=== PATIENT | female | born 1945 | race Caucasian/White ===

== ENCOUNTER 2016-07-06 22:42 | Inpatient (IN) | payer OTHER ==
--- NOTE | ~2016-07-06 | HP ---
History And Physical [place] [id number] [facility] [place]. [address] NAME: AYAN HERRERA : 44 STATUS : ADM IN [facility]#: [id number] AGE: 70 ADM/REG DATE : 07/07/16 MR#: [id number] REPORT SERV DATE: 07/07/16 DICTATED BY: HARIKA JC DATE: 07/07/16 REPORT STATUS : Draft TRANSCRIBED BY: MODJenaro DATE: 07/07/16 DATE OF ADMISSION: 07/07/2016 CHIEF COMPLAINT: Fever. HISTORY OF PRESENT ILLNESS: The patient is a 70-year-old female with a diagnosis of breast cancer, on current treatment with Dr. Ramos, additionally under the care of Dr. 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 Fever began approximately four days ago and today has been consistently 100.7, although the patient did take one-time dose of Tylenol. Has been down to 99 currently, but the patient does have generalized feeling of significant weakness. The patient did have diarrhea episode x2 days, in which she took Imodium, which has since resolved, but still having cramping-type symptoms. Symptoms of weakness have been progressive, constant, moderate to severe with cramping abdominal pain. No radiating symptoms. Associated with mild nausea, but no vomiting. Positive for fever, diarrhea, weakness. No shortness of breath, dizziness, or swelling. There are no worsening symptoms or relieving symptoms. Weakness is still currently present with fevers, slightly improved. REVIEW OF SYSTEMS: GENERAL: Noted for weakness, fever, dizziness occasionally. EYES: No visual changes or pain. ENT: No sore throat or congestion. Does have right ear pain. NEURO: No headaches or confusion. SKIN: No rashes or bruising. RESPIRATORY: No shortness of breath or cough. CV: No chest pain or palpitations. GI: Mild nausea. Positive diarrhea. Abdominal cramping. : No dysuria or hematuria. MUSCULOSKELETAL: No myalgias or arthralgias above baseline. ENDO: Noted for fatigue, but no change in blood sugars. HEME: No bleeding or bruising. IMMUNOLOGIC: No rhinorrhea. PSYCH: No anxiety or confusion. PAST MEDICAL HISTORY: Pnd-nqippvh-kopftjxwq diabetes, breast cancer, hypertension, chronic MRSA infection on chronic doxycycline. SURGICAL HISTORY: Right knee surgery, left lumpectomy. SOCIAL HISTORY: No smoking, alcohol, or illicits. Unfortunately has had loss of this year in March shortly after her diagnosis of cancer and has also been dealing with a son, who is currently also admitted with diabetic foot requiring toe and foot amputations and also underwent heart attack. FAMILY HISTORY: Noted for heart disease and diabetes. History And Physical [address] [address] NAME: AYAN HERRERA : 44 STATUS : ADM IN [facility]#: [id number] AGE: 70 ADM/REG DATE : 07/07/16 MR#: [id number] REPORT SERV DATE: 07/07/16 DICTATED BY: HARIKA JC DATE: 07/07/16 REPORT STATUS : Draft TRANSCRIBED BY: CHASITY DATE: 07/07/16 ALLERGIES: CODEINE AND ADHESIVE TAPE. HOME MEDICATIONS: Tylenol, Norvasc, aspirin, doxycycline, Hyzaar, melatonin, metformin, Prilosec, and Zocor. PHYSICAL EXAMINATION: VITAL SIGNS: The patient's blood pressure 105/61, temperature 99.4, pulse 99, respirations 18, O2 saturation 100%. GENERAL: No acute distress, but fairly weak. EYES: No scleral icterus. ENT: Cerumen impaction in right ear. Left ear clear. No bulging tympanic membranes. Nares patent. Tongue midline. Dry mucous membranes. RESPIRATORY: Clear to auscultation. No wheezes. CV: Mildly tachycardic. No rubs. GI: Soft, nontender, nondistended. Bowel sounds positive, but does have random cramping episodes. : Deferred. MUSCULOSKELETAL: Moves all extremities. Does have brace on right knee. SKIN: Warm and dry. No mottling. LYMPH: No pedal lymphadenopathy. HEME: No bleeding or bruising. NEURO: Alert and oriented. Moves all extremities x4. PSYCH: Appropriate mood and affect. EKG: Normal sinus rhythm, rate of 93, QTc 450. No acute dynamic ST changes. Lactate 2.7. Urinalysis negative. CBC; WBC count 0.8, H and H 7.4 and 21.7, MCV of 87.1, platelets 68. Neutrophil 0.14. CMP; procalcitonin 0.53, potassium 3.3, sodium 139, BUN and creatinine 24 and 1.23, total protein 4.4, albumin 1.6, AST and ALT 71 and 79, lipase 56. ASSESSMENT AND PLAN: 1. Neutropenic fever. 2. Severe sepsis present on arrival. 3. Pancytopenia. 4. Kdp-fupjqbu-vfwobcrln diabetes. 5. Chronic methicillin-resistant Staphylococcus aureus, on chronic doxycycline. 6. Hypokalemia. 7. Breast cancer. 8. Elevated LFTs. PLAN: 1. For neutropenic fever, cefepime given in the emergency room. Continue chronic doxycycline. We will ask Dr. Brady to evaluate, as the patient sees Dr. Brady chronically due to chronic MRSA infection of right knee. The patient did have two episodes of diarrhea, but doubt acute C diff, as these symptoms appear to have resolved. We will also keep on neutropenic precautions. 2. Sepsis, severe. Elevated lactate with neutropenia, tachycardia, and fever. History of History And Physical [address] [address] NAME: AYAN HERRERA : 44 STATUS : ADM IN PAT#: [id number] AGE: 70 ADM/REG DATE : 07/07/16 MR#: [id number] REPORT SERV DATE: 07/07/16 DICTATED BY: HARIKA JC DATE: 07/07/16 REPORT STATUS : Draft TRANSCRIBED BY: CHASITY DATE: 07/07/16 MRSA, on chronic doxy. Cefepime empirically and culture monitor. 3. Pancytopenia. Recent chemotherapy approximately one week ago, on treatment for breast cancer. 4. Ajv-xzpbbgn-whaamdswd diabetes. Sliding scale insulin. Hold metformin. 5. Chronic MRSA. Continue doxycycline until evaluated by Dr. Brady. 6. Hypokalemia. Replace. The patient did have recent diarrhea episode, which could be additional causal agent. 7. Breast cancer history per Dr. Ramos. 8. Elevated LFTs. Monitor. Hold statin. We will need decreased dose to either statin or change from amlodipine. We will hold both medications at this time. Repeat LFTs with next set of labs. DDN/MODL Harika Jc MD / [id number] CC: MD Guerda Andujar D.O.
--- NOTE | ~2016-07-06 | CN ---
Consultation Report [facility] [address] [place]. [address] NAME: AYAN HERRERA : 43 STATUS : ADM IN PAT#: [id number] AGE: 70 ADM/REG DATE : 07/07/16 MR#: [id number] REPORT SERV DATE: 07/08/16 DICTATED BY: AYLIN BRADY DATE: 07/07/16 REPORT STATUS : Draft TRANSCRIBED BY: MODL DATE: 07/07/16 INFECTIOUS DISEASE CONSULTATION DATE OF CONSULTATION: 07/07/2016 REASON FOR CONSULTATION: Neutropenic fever. HISTORY OF PRESENT ILLNESS: This is a 70-year-old female, known to me from her history of MRSE infection of her right total knee arthroplasty, for which she has been on suppressive doxycycline therapy for five years. She was diagnosed with a breast cancer of her left breast, an invasive ductal cell carcinoma, in February and on 03/16, underwent a left breast lumpectomy and sentinel lymph node biopsy. Lymph nodes were positive. The patient was seen by Dr. Ramos and begun on chemotherapy, finishing her last doses eight days ago. She also got a dose of Neulasta that day. A few days after that, she started getting some nausea, a little bit of episodic vomiting and then developed some loose stools and abdominal cramping, along with low-grade fevers going as high as 100.7. These symptoms brought her to the emergency department last night, where she was found to be mildly tachycardic with a pulse of 99 and had a temperature of 99.4 and was found to have a white blood cell count of 800 with 20% neutrophils. The patient had blood cultures obtained and was started on cefepime. A stool for C diff and other studies was ordered, but has not yet been collected. The patient states she has had maybe five very loose watery stools over the past 24 hours and continues to have some cramping abdominal pain and nausea. Her white blood cell count is improved this morning as outlined below. She denies any problems with her right knee. PAST MEDICAL HISTORY: In addition to the above is notable for diabetes and hypertension. She also has a history of gastroesophageal reflux, hyperlipidemia and has had a cholecystectomy. ALLERGIES: SHE IS INTOLERANT OF CODEINE. OUTPATIENT MEDICATIONS: Include doxycycline, Prilosec, Zocor, Hyzaar, melatonin, metformin, aspirin, Norvasc, and p.r.n. Tylenol. SOCIAL HISTORY: The patient lost her of 55 years in March. One of her two sons has been very ill and remains in the hospital now also. She is nonsmoker and nondrinker. FAMILY HISTORY: Notable for heart disease and diabetes. REVIEW OF SYSTEMS: No chest pain, shortness of breath, or genitourinary symptoms. No skin issues. Otherwise, as noted above. PHYSICAL EXAMINATION: VITAL SIGNS: Maximum temperature since admission 99.4, blood pressure 127/53 and was as low as 105/61, pulse 82 at present, respiratory rate 14. She weighs 83 kg. Consultation Report [address] [place]. [address] NAME: AYAN HERRERA : 43 STATUS : ADM IN [facility]#: [id number] AGE: 70 ADM/REG DATE : 07/07/16 MR#: [id number] REPORT SERV DATE: 07/08/16 DICTATED BY: AYLIN BRADY DATE: 07/07/16 REPORT STATUS : Draft TRANSCRIBED BY: CHASITY DATE: 07/07/16 GENERAL: She appears ill, but not toxic. She is alert and oriented. HEAD AND NECK: Show a clear oral cavity without thrush or ulcers. Neck is supple, no adenopathy. LUNGS: Clear to auscultation. CARDIAC: Regular rate and rhythm. Normal S1 and S2 without murmur, gallop, or rub. ABDOMEN: Notable for hyperactive bowel sounds. No significant distention, but soft and mild discomfort to palpation, nonlocalized. EXTREMITIES: Right total knee arthroplasty has chronic soft tissue edema without warmth, erythema, or tenderness. The patient has a peripheral IV in her arm without phlebitis. SKIN: Without rash. LABORATORY STUDIES: White blood cell count today 1.3 with 46% neutrophils, 8% bands, 38% lymphs; hemoglobin 7.3; platelets 74,000. Creatinine 1.08. Lactate level on admission was 2.7, it is 1.6 this morning. ALT 79, AST 71, alkaline phosphatase and bilirubin normal. Procalcitonin 0.53. Urinalysis negative. Blood cultures negative to date. Chest x-ray x2 negative. IMPRESSION: Neutropenic fever in a patient who just finished chemotherapy for breast cancer a week ago. No obvious source of the fever, but she does have prominent GI symptoms over the past week including diarrhea and of course, we need to rule out C diff colitis along with other bacterial colitis. The patient also has a history of right total knee arthroplasty infection with MRSE, well controlled for many years on suppressive doxycycline therapy. Fortunately, the patient's white blood cell count is improving with absolute neutrophil count today of 715 status post a dose of Neulasta last week. PLAN: 1. For today, we will continue the IV cefepime. 2. Continue suppressive doxycycline. 3. We will check the stool for C diff and culture. 4. Check repeat white blood cell count in the morning. RADHA/MODJenaro Aylin Brady M.D. / [id number] CC: MD Guerda Grace D.O. Bertrand Marquess Anz III, M.D.
--- NOTE | ~2016-07-06 | DS ---
Discharge Summary [facility] [address] [place]. [address] NAME: AYAN HERRERA : 44 STATUS : DIS IN PAT#: [id number] AGE: 70 ADM/REG DATE : 07/07/16 MR#: [id number] REPORT SERV DATE: 07/09/16 DICTATED BY: PAPA HAYNES DATE: 07/09/16 REPORT STATUS : Draft TRANSCRIBED BY: MODL DATE: 07/09/16 ADMISSION DATE: 07/07/2016 DISCHARGE DATE: 07/09/2016 DISCHARGE DIAGNOSES: 1. Neutropenic fever, resolved. 2. History of methicillin-resistant Staphylococcus aureus, right knee. 3. Sepsis, resolved. 4. Pancytopenia, chemo induced. 5. Breast cancer. 6. Diabetes mellitus type 2, stable. 7. Acute kidney injury, improving. IMAGIN. Chest x-ray, 06/16/2016, impression: Lungs clear. Heart size normal. 2. Chest x-ray, 06/17/2016, impression: No new airspace disease. LABORATORY DATA: WBC 12.7, hemoglobin 8.4, hematocrit 25.5, and platelet count 117. Procalcitonin is 0.53. Sodium is 141, potassium 4.1, chloride is 109. BUN is 15. Creatinine is 1.17. Glucose is 95. Calcium is 7.6 and magnesium is 1.7. CONSULTATIONS: Infectious Disease, Dr. Brady. COURSE OF HOSPITAL STAY: Please refer to history and physical dictated by Dr. Alphonso Blood, on 07/07/2016, as well as consult note by Dr. Brady. This patient is a 70-year-old female, who presented in [facility] Emergency Room with complaints of fever. She does present with a history of breast cancer, last chemotherapy one week prior to this admission. The patient is under the care of Dr. Ramos, in [facility]. 1. Neutropenic fever. The patient was evaluated in the emergency room, initially started on cefepime, noting that patient was on chronic doxycycline due to history of MRSA to right knee. The patient is followed outpatient by Dr. Brady. Dr. Brady was consulted to follow the patient. The patient did state she had episodes of diarrhea. She was C diff negative. Cefepime was held 24 hours prior to discharge. Patient remained afebrile. Lab work was observed. Patient has remained stable. She will be discharged home. Continue her doxycycline. 2. History of MRSA, right knee. As stated above, the patient has been followed by Dr. Brady, outpatient due to chronic MRSA of right knee. Patient was continued on doxycycline during her stay and was evaluated by Dr. Brady. She will be discharged home to continue her medications. 3. Sepsis. The patient was noted with elevated lactate upon admission as well as neutropenic and tachycardic with fever. With history of MRSA, precautions were made again. Infectious Disease was asked to monitor. Within 24 hours of admission, the patient was afebrile, and white count again was monitored. Patient will be discharged to continue her doxycycline. Discharge Summary [address] [address] NAME: AYAN HERRERA : 44 STATUS : DIS IN PAT#: [id number] AGE: 70 ADM/REG DATE : 07/07/16 MR#: [id number] REPORT SERV DATE: 07/09/16 DICTATED BY: PAPA HAYNES DATE: 07/09/16 REPORT STATUS : Draft TRANSCRIBED BY: CHASITY DATE: 07/09/16 4. Pancytopenia. This was chemo induced. The patient was monitored during her stay. The patient will follow up with Oncology outpatient. 5. Breast cancer. The patient is followed by Dr. Ramos. The patient has a followup appointment on 07/20/2016. The patient will follow up then. If the need arises, the patient will call . 6. Diabetes mellitus type 2. The patient's blood sugar was monitored. She was placed on a sliding scale. She will continue home medications upon discharge. 7. Acute kidney injury. It was noted the patient's BUN and creatinine were elevated upon admission. This has been monitored. It is improving. She will continue to follow up outpatient with Dr. Ramos. DISCHARGE MEDICATIONS: 1. Aspirin 81 mg one p.o. twice daily. 2. Doxycycline 100 mg p.o. twice daily. 3. Prilosec 40 mg one p.o. daily. 4. Norvasc 10 mg one p.o. daily. 5. Zocor 80 mg p.o. every morning. 6. Losartan/HCTZ 100/12.5 one tab every morning. 7. Glucophage 500 mg one p.o. twice daily. 8. Melatonin 3 mg one p.o. at bedtime. 9. Tylenol 500-1000 mg p.o. p.r.n. for pain. This discharge took less than 30 minutes. JHON/CHASITY Papa Haynes NP / [id number] CC: MD Guerda Grace D.O.
[~2016-07-06 22:42] MED LIST: ASA5GR PO; AVAP150 PO; B12250T PO; BACDS PO; CALTRA600D PO; DORYX50 MG PO; FISH-EPA1000 MG PO; GLUCOPHAGE1000 MG PO; HARD NAILS PO; HYDROCHLOROT25 MG PO; HYZAAR1 TAB PO; MULTIPLE VIT PO; NAP500 PO; NEXIUM40 PO; NORCO1 TA1 PO; NORV10 PO; PR25 PO; PRILOSEC40 MG PO; ULTRAM50 PO; ZOCOR40 PO; ZOFRAN4 PO; [UNRECOGNIZED DRUG - OTHER]
[2016-07-07 00:18] LABS: BASOPHILS 0 %; EOSINOPHILS 1.3 %; EOSINOPHILS ABSOLUTE 0.01 10/3/uL (0.0-0.53); LYMPHOCYTES 42.9 %; LYMPHOCYTES ABSOLUTE 0.33 10/3/uL (0.67-4.30); MEAN CORPUSCULAR HEMOGLOB 29.7 pg (26.0-34.0); MEAN CORPUSCULAR VOLUME 87.1 fL (80-100); MEAN PLATELET VOLUME 11.1 fL (9.2-13.0); MONOCYTES 37.7 %; MONOCYTES ABSOLUTE 0.29 10/3/uL (0.21-1.20); NEUTROPHILS 18.1 %; NEUTROPHILS ABSOLUTE 0.14 10/3/uL (2.02-8.40)
[2016-07-07 00:19] LABS: ER CBC TAT 0 Hrs 07 Mins; HEMATOCRIT 21.7 % (36.0-48.0); HEMOGLOBIN 7.4 g/dL (12.0-16.0); MANUAL DIFF NO %; MEAN CORPUS HGB CONC 34.1 g/dL (32.0-36.0); PLATELET COUNT 68 10/3/uL (150-400); RBC DISTRIBUTION WIDTH 16.9 % (12.0-16.0); RED CELL COUNT 2.49 10/6/uL (4.0-5.6); WHITE BLOOD CELLS 0.8 10/3/uL (4.5-10.5)
[2016-07-07 00:37] LABS: LACTATE 2.7 MMOL/L (0.3-2.4)
[2016-07-07 00:39] LABS: CALCIUM, SERUM 7.9 MG/DL (8.5-10.4); CHLORIDE, SERUM 102 MMOL/L (96-112); CO2 (CARBON DIOXIDE) 27 MMOL/L (24-34); CREATININE 1.23 MG/DL (0.55-1.02); GFR AFRICAN AMERICAN 51 ML/MIN (>=60); GFR NON AFRICAN AMERICAN 44 ML/MIN (>=60); GLUCOSE, SERUM 126 MG/DL (60-99); SGPT(ALT) 79 U/L (5-65); SODIUM, SERUM 139 MMOL/L (135-148); TOTAL BILIRUBIN 0.8 MG/DL (0-1.2)
[2016-07-07 00:40] LABS: A/G RATIO 0.6 (0.7-1.9); ALBUMIN 1.6 G/DL (3.5-5.0); ALKALINE PHOSPHATASE 76 U/L (45-117); BUN (BLOOD UREA NITROGEN) 24 MG/DL (6-23); GLOBULIN 2.8 G/DL (2.5-4.1); POTASSIUM, SERUM 3.3 MMOL/L (3.5-5.3); SGOT(AST) 71 U/L (5-40); TOTAL PROTEIN 4.4 G/DL (6.0-8.5)
[2016-07-07 00:44] LABS: ASCORBIC ACID (UR NOT ORDER) NEG (NEG); BILIRUBIN, URINE NEGATIVE (NEG); ER URINALYSIS TAT 0 Hrs 00 Mins; KETONE, URINE NEGATIVE (NEG); LEUKOCYTE ESTERASE(NOT OR NEG (NEG); NITRITE (URINE) NEG (NEG); WBC (NOT ORDERED) (RFLEX) 2 (0-5)
[2016-07-07 00:51] LABS: ANISOCYTOSIS 1+ (5-10/OIF) (0-5/OIF); ER DIFF TAT 0 Hrs 39 Mins; LYMPHOCYTES 50 %; MONOCYTES 30 %; MONOCYTES ABSOLUTE (CALC) 0.24 10/3/uL (0.21-1.20); NEUTROPHILS ABSOLUTE (CALC) 0.16 10/3/uL (2.02-8.40); PLATELET ESTIMATE DEC (ADEQUATE); RBC MORPHOLOGY ABN (NORMAL); SEGMENTED NEUTROPHIL (0) 20 %; TOTAL NUCLEATED CELLS 10
[2016-07-07 01:29] LABS: PROCALCITONIN 0.53 ng/mL (<0.5)
[2016-07-07] MEDS ORDERED: NORV10 PO (01:36)
[2016-07-07] MEDS ORDERED: PRILOSEC40 MG PO (01:37)
[2016-07-07] MEDS ORDERED: DORYX100 MG PO (01:37)
[2016-07-07] MEDS ORDERED: HYZAAR1 TAB PO (01:37)
[2016-07-07] MEDS ORDERED: ZOCOR80 MG PO (01:37)
[2016-07-07] MEDS ORDERED: ACET500CAP PO (01:38)
[2016-07-07] MEDS ORDERED: GLUCPH PO (01:38)
[2016-07-07] MEDS ORDERED: MELA3 PO (01:38)
[2016-07-07] MEDS ORDERED: ASAB PO (01:38)
[2016-07-07 08:13] LABS: HEMATOCRIT 21.9 % (36.0-48.0); HEMOGLOBIN 7.3 g/dL (12.0-16.0); MEAN CORPUS HGB CONC 33.3 g/dL (32.0-36.0); MEAN CORPUSCULAR HEMOGLOB 29.1 pg (26.0-34.0); MEAN CORPUSCULAR VOLUME 87.3 fL (80-100); PLATELET COUNT 74 10/3/uL (150-400); RED CELL COUNT 2.51 10/6/uL (4.0-5.6)
[2016-07-07 08:14] LABS: MANUAL DIFF YES %; WHITE BLOOD CELLS 1.3 10/3/uL (4.5-10.5)
[2016-07-07 08:25] LABS: BUN (BLOOD UREA NITROGEN) 21 MG/DL (6-23); CALCIUM, SERUM 7.7 MG/DL (8.5-10.4); CHLORIDE, SERUM 105 MMOL/L (96-112); CO2 (CARBON DIOXIDE) 26 MMOL/L (24-34); CREATININE 1.08 MG/DL (0.55-1.02); GFR AFRICAN AMERICAN 60 ML/MIN (>=60); GFR NON AFRICAN AMERICAN 52 ML/MIN (>=60); POTASSIUM, SERUM 3.5 MMOL/L (3.5-5.3); SODIUM, SERUM 140 MMOL/L (135-148)
[2016-07-07 08:26] LABS: GLUCOSE, SERUM 96 MG/DL (60-99)
[2016-07-07 08:46] LABS: ANISOCYTOSIS 1+ (5-10/OIF) (0-5/OIF); BAND NEUTROPHILS 8 %; LYMPHOCYTES 30 %; LYMPHOCYTES ABSOLUTE (CALC) 0.39 10/3/uL (0.67-4.30); MICROCYTES 1+ (5-10/OIF) (0-5/OIF); MONOCYTES 16 %; MONOCYTES ABSOLUTE (CALC) 0.21 10/3/uL (0.21-1.20); PLATELET ESTIMATE DEC (ADEQUATE); SEGMENTED NEUTROPHIL (0) 46 %; TOTAL NUCLEATED CELLS 100
[2016-07-07 08:47] LABS: VACUOLATED NEUTROPHILES 1+
[2016-07-07 13:13] LABS: MEAN CORPUS HGB CONC 34.3 g/dL (32.0-36.0); MEAN CORPUSCULAR VOLUME 87.4 fL (80-100); MEAN PLATELET VOLUME 10.9 fL (9.2-13.0); PLATELET COUNT 75 10/3/uL (150-400); RBC DISTRIBUTION WIDTH 16.9 % (12.0-16.0)
[2016-07-07 13:14] LABS: HEMATOCRIT 20.1 % (36.0-48.0); HEMOGLOBIN 6.9 g/dL (12.0-16.0); MANUAL DIFF YES %; WHITE BLOOD CELLS 1.8 10/3/uL (4.5-10.5)
[2016-07-07 13:28] LABS: A/G RATIO 0.6 (0.7-1.9); ALBUMIN 1.5 G/DL (3.5-5.0); ALKALINE PHOSPHATASE 71 U/L (45-117); BUN (BLOOD UREA NITROGEN) 20 MG/DL (6-23); CALCIUM, SERUM 7.6 MG/DL (8.5-10.4); CHLORIDE, SERUM 107 MMOL/L (96-112); CO2 (CARBON DIOXIDE) 24 MMOL/L (24-34); CREATININE 1.02 MG/DL (0.55-1.02); GFR AFRICAN AMERICAN 64 ML/MIN (>=60); GFR NON AFRICAN AMERICAN 55 ML/MIN (>=60); GLOBULIN 2.6 G/DL (2.5-4.1); GLUCOSE, SERUM 94 MG/DL (60-99); POTASSIUM, SERUM 3.8 MMOL/L (3.5-5.3); SGOT(AST) 72 U/L (5-40); SGPT(ALT) 90 U/L (5-65); SODIUM, SERUM 142 MMOL/L (135-148); TOTAL BILIRUBIN 0.6 MG/DL (0-1.2); TOTAL PROTEIN 4.1 G/DL (6.0-8.5)
[2016-07-07 13:45] LABS: BAND NEUTROPHILS 32 %; EOSINOPHILS 4 %; EOSINOPHILS ABSOLUTE (CALC) 0.07 10/3/uL (0.0-0.53); IMMATURE GRANS ABSOLUTE (CALC) 0.07 10/3/uL (0.0-0.11); LYMPHOCYTES 32 %; LYMPHOCYTES ABSOLUTE (CALC) 0.58 10/3/uL (0.67-4.30); METAMYELOCYTES 4 %; MONOCYTES 16 %; MONOCYTES ABSOLUTE (CALC) 0.29 10/3/uL (0.21-1.20); NEUTROPHILS ABSOLUTE (CALC) 0.79 10/3/uL (2.02-8.40); SEGMENTED NEUTROPHIL (0) 12 %; TOTAL NUCLEATED CELLS 50
[2016-07-07 13:46] LABS: PLATELET ESTIMATE DEC (ADEQUATE); POLYCHROMASIA 1+ (2-5/OIF) (0-1/OIF); TOXIC GRANULATION 1+
[2016-07-08 05:37] LABS: BUN (BLOOD UREA NITROGEN) 19 MG/DL (6-23); CALCIUM, SERUM 7.4 MG/DL (8.5-10.4); CHLORIDE, SERUM 106 MMOL/L (96-112); CO2 (CARBON DIOXIDE) 25 MMOL/L (24-34); CREATININE 1.26 MG/DL (0.55-1.02); GFR AFRICAN AMERICAN 50 ML/MIN (>=60); GFR NON AFRICAN AMERICAN 43 ML/MIN (>=60); GLUCOSE, SERUM 79 MG/DL (60-99); POTASSIUM, SERUM 3.6 MMOL/L (3.5-5.3); SODIUM, SERUM 138 MMOL/L (135-148)
[2016-07-08 05:49] LABS: HEMOGLOBIN 7.8 g/dL (12.0-16.0); MEAN CORPUS HGB CONC 33.5 g/dL (32.0-36.0); MEAN CORPUSCULAR HEMOGLOB 29.8 pg (26.0-34.0); MEAN CORPUSCULAR VOLUME 88.9 fL (80-100); MEAN PLATELET VOLUME 10.9 fL (9.2-13.0); RBC DISTRIBUTION WIDTH 16.9 % (12.0-16.0); RED CELL COUNT 2.62 10/6/uL (4.0-5.6)
[2016-07-08 05:52] LABS: HEMATOCRIT 23.3 % (36.0-48.0); MANUAL DIFF YES %; PLATELET COUNT 117 10/3/uL (150-400); WHITE BLOOD CELLS 6.2 10/3/uL (4.5-10.5)
[2016-07-08 08:07] LABS: BAND NEUTROPHILS 20 %; EOSINOPHILS 2 %; EOSINOPHILS ABSOLUTE (CALC) 0.12 10/3/uL (0.0-0.53); IMMATURE GRANS ABSOLUTE (CALC) 0.31 10/3/uL (0.0-0.11); LYMPHOCYTES 11 %; LYMPHOCYTES ABSOLUTE (CALC) 0.68 10/3/uL (0.67-4.30); METAMYELOCYTES 3 %; MONOCYTES 8 %; MYELOCYTES 2 %; NEUTROPHILS ABSOLUTE (CALC) 4.59 10/3/uL (2.02-8.40); SEGMENTED NEUTROPHIL (0) 54 %; TOTAL NUCLEATED CELLS 100
[2016-07-08 08:08] LABS: PLATELET ESTIMATE SLT DEC (ADEQUATE); RBC MORPHOLOGY NORM (NORMAL)
[2016-07-09 06:33] LABS: HEMATOCRIT 25.5 % (36.0-48.0); HEMOGLOBIN 8.4 g/dL (12.0-16.0); MEAN CORPUS HGB CONC 32.9 g/dL (32.0-36.0); MEAN CORPUSCULAR HEMOGLOB 29.3 pg (26.0-34.0); MEAN CORPUSCULAR VOLUME 88.9 fL (80-100); MEAN PLATELET VOLUME 10.6 fL (9.2-13.0); PLATELET COUNT 117 10/3/uL (150-400); RBC DISTRIBUTION WIDTH 17.2 % (12.0-16.0); RED CELL COUNT 2.87 10/6/uL (4.0-5.6)
[2016-07-09 06:35] LABS: MANUAL DIFF YES %; WHITE BLOOD CELLS 12.7 10/3/uL (4.5-10.5)
[2016-07-09 06:44] LABS: BUN (BLOOD UREA NITROGEN) 15 MG/DL (6-23); CALCIUM, SERUM 7.6 MG/DL (8.5-10.4); CHLORIDE, SERUM 109 MMOL/L (96-112); CO2 (CARBON DIOXIDE) 23 MMOL/L (24-34); CREATININE 1.17 MG/DL (0.55-1.02); GFR AFRICAN AMERICAN 54 ML/MIN (>=60); GFR NON AFRICAN AMERICAN 47 ML/MIN (>=60); GLUCOSE, SERUM 95 MG/DL (60-99); POTASSIUM, SERUM 4.1 MMOL/L (3.5-5.3); SODIUM, SERUM 141 MMOL/L (135-148)
[2016-07-09 07:02] LABS: BAND NEUTROPHILS 17 %; IMMATURE GRANS ABSOLUTE (CALC) 0.76 10/3/uL (0.0-0.11); LYMPHOCYTES 1 %; LYMPHOCYTES ABSOLUTE (CALC) 0.13 10/3/uL (0.67-4.30); METAMYELOCYTES 4 %; MONOCYTES 5 %; MONOCYTES ABSOLUTE (CALC) 0.64 10/3/uL (0.21-1.20); MYELOCYTES 2 %; NEUTROPHILS ABSOLUTE (CALC) 11.18 10/3/uL (2.02-8.40); SEGMENTED NEUTROPHIL (0) 71 %; TOTAL NUCLEATED CELLS 100
[2016-07-09 07:03] LABS: ANISOCYTOSIS 1+ (5-10/OIF) (0-5/OIF); PLATELET ESTIMATE SLT DEC (ADEQUATE); TOXIC GRANULATION 1+
[2016-07-09 07:10] LABS: PROCALCITONIN 0.53 ng/mL (<0.5)
== END 2016-07-09 14:38 | disposition home or self-care (01) | DRG 871 ==
LOC: ER 22:42 → 7NO 07-07 02:47
PROVIDERS: Emergency Medicine; Hospitalist; Nurse Practitioner Adult Health
PROC: 30233N1 Transfusion of Nonautologous Red Blood Cells into Peripheral Vein, Percutaneous Approach (ICD-10-PCS; principal; 2016-07-07)
DX: A41.9 Sepsis, unspecified organism (principal); D61.810 Antineoplastic chemotherapy induced pancytopenia; N17.9 Acute kidney failure, unspecified; C77.9 Secondary and unspecified malignant neoplasm of lymph node, unspecified; E11.9 Type 2 diabetes mellitus without complications; Z79.2 Long term (current) use of antibiotics; B95.62 Methicillin resistant Staphylococcus aureus infection as the cause of diseases classified elsewhere; E87.6 Hypokalemia; C50.912 Malignant neoplasm of unspecified site of left female breast; I10 Essential (primary) hypertension; K21.9 Gastro-esophageal reflux disease without esophagitis; E78.5 Hyperlipidemia, unspecified; R65.20 Severe sepsis without septic shock; T45.1X5A Adverse effect of antineoplastic and immunosuppressive drugs, initial encounter; Z96.651 Presence of right artificial knee joint; Z90.49 Acquired absence of other specified parts of digestive tract; Z79.84 Long term (current) use of oral hypoglycemic drugs; Z83.3 Family history of diabetes mellitus
CPT/HCPCS: 36415; 71010; 80048; 80053; 81001; 82962; 83605; 83690; 83735; 84145; 85025; 86850; 86900; 86901; 86920; 87040; 87328; 87329; 87493; 87493-59; 89055; 93005; 96365; 96368; 99285; A9270-GY; J0692; J2405; J3475; P9016

== ENCOUNTER 2016-08-13 09:34 | Inpatient (IN) | payer OTHER ==
--- NOTE | ~2016-08-13 | OP ---
Record Of Operation [facility] [address] [place]. [address] NAME: AYAN HERRERA : 43 STATUS : ADM IN PAT#: [id number] AGE: 70 ADM/REG DATE : 08/13/16 MR#: [id number] REPORT SERV DATE: 08/14/16 DICTATED BY: ASHLEY NOEL DATE: 08/14/16 REPORT STATUS : Draft TRANSCRIBED BY: MODJenaro DATE: 08/14/16 DATE OF PROCEDURE: 08/14/2016 PREOPERATIVE DIAGNOSIS: Right intertrochanteric femur fracture. POSTOPERATIVE DIAGNOSIS: Right intertrochanteric femur fracture. OPERATION: [place]/intertrochanteric femur fracture. SIDE: Right. NET APPLICATION SUPPORT SPECIALIST: See chart. ESTIMATED BLOOD LOSS: About 100 mL. TOURNIQUET TIME: None. COMPLICATIONS: None. SPECIMENS: None. ANESTHESIA: See chart. PROCEDURE: The patient was taken to the preoperative holding area. The patient was appropriately identified, marked and the consent form carefully checked. The patient was taken then to the operating room and anesthetic was induced per the anesthesiologist. The patient was carefully positioned, carefully padded, prepped and draped on the fracture table. Prior to the surgical prep a closed reduction was obtained by closed method using fluoroscopic guidance. The patient was then prepped and draped in the usual sterile fashion. Using fluoroscopic guidance, a straight lateral incision was made. This was followed by electrocautery through the fat, the IT band and the vastus, staying towards the posterior portion of the lateral vastus to decrease the amount of muscle tissue that was cut through. Meticulous hemostasis was obtained with electrocautery. Lateral femoral cortex was exposed further with periosteal elevator and appropriate retraction. A guide was then used to place a guidewire basically in the center of the head on AP and lateral x-ray views. This was followed by depth gauge and then triple reamer. Lag screw was placed over the guidewire. The sliding plate was then placed and impacted and checked to be sure it was down snug. The plate was held with a plate clamp distally and reduction again checked. The screw holes in the plate were then filled with screws in the standard fashion with drill depth gauge and then self-tapping screw placement. The screws were then tightened by hand. Record Of Operation [facility] [address] [place] [address] NAME: AYAN HERRERA : 44 STATUS : ADM IN PAT#: [id number] AGE: 70 ADM/REG DATE : 08/13/16 MR#: [id number] REPORT SERV DATE: 08/14/16 DICTATED BY: ASHLEY NOEL DATE: 08/14/16 REPORT STATUS : Draft TRANSCRIBED BY: MODJenaro DATE: 08/14/16 All traction was released and the compression screw placed and tightened. Again x-ray views were checked to ascertain reduction and screw length. The wound was then irrigated and closed with sutures in the vastus. A medium drain was placed distally anteriorly between the vastus and the IT band, then sutured on the IT band, 2-0 subcutaneous, and naz in the skin. Wound dressed sterilely. The patient was awakened and carefully transferred to the bed and transferred to the recovery room without incident. COUNTS: Correct. WTB/CHASITY Jairon Noel M.D. / [id number] CC: Alonso Rosa II, MD
--- NOTE | ~2016-08-13 | HP ---
History And Physical [id number] [place]. [address] NAME: AYAN HERRERA : 43 STATUS : ADM IN [facility]#: [id number] AGE: 70 ADM/REG DATE : 08/13/16 MR#: [id number] REPORT SERV DATE: 08/13/16 DICTATED BY: SYDNIE GUSMAN II DATE: 08/13/16 REPORT STATUS : Draft TRANSCRIBED BY: MODL DATE: 08/13/16 DATE OF ADMISSION: 08/13/2016 CHIEF COMPLAINT: Left hip pain status post fall. HISTORY OF PRESENT ILLNESS: The patient is a 70-year-old female with a history of breast cancer, currently undergoing chemotherapy with pending radiation, as well as diabetes, hypertension, obesity, and a chronically infected right knee, who presented to [facility] due to a ground-level fall, hip pain, and found to have a right intertrochanteric fracture. The patient denied any dizziness, palpitations, shortness of breath, weakness, or syncope. She was walking in the bathroom and turned to call for her son and had a mechanical fall after losing balance with her cane. Currently, the patient has right hip pain, but otherwise no complaints. Denies any shortness of breath, cough, fever, chills, abdominal pain, nausea, vomiting, and diarrhea. REVIEW OF SYSTEMS: 10-point review of systems otherwise negative except for HPI. PAST MEDICAL HISTORY: 1. Stage 2 T1, N1 invasive ductal carcinoma of the left breast, status post conservative breast surgery and adjuvant chemotherapy, followed by Dr. Ramos, Dr. Fischer, soon to begin radiation. 2. Diabetes mellitus type 2. 3. Hypertension. 4. Chronic MRSE infection of the right knee, on chronic doxycycline. SURGICAL HISTORY: Right knee surgery and left lumpectomy. SOCIAL HISTORY: The patient denies any alcohol, tobacco, or drug use. She lives with her son who is a diabetic with an amputated leg. She also lost her this past March. FAMILY HISTORY: Significant for heart disease and diabetes. ALLERGIES: CODEINE AND ADHESIVE TAPE. HOME MEDICATIONS: Norvasc, aspirin, B12, doxycycline, Hyzaar, Prilosec, Zocor, and multivitamin. PHYSICAL EXAMINATION: VITAL SIGNS: Blood pressure 114/68, temperature 98.8, pulse 86, respirations 19, and O2 saturation 98% on room air. GENERAL: The patient is alert and oriented x3, in no acute distress. NECK: Supple, nontender. No lymphadenopathy or thyromegaly. HEENT: Moist mucous membranes. Pupils are equal, round, and reactive to light. Conjunctivae are clear. RESPIRATORY: Lungs are clear to auscultation bilaterally. No wheezes, rhonchi, or rales. History And Physical [address] [address] NAME: AYAN HERRERA : 43 STATUS : ADM IN [facility]#: [id number] AGE: 70 ADM/REG DATE : 08/13/16 MR#: [id number] REPORT SERV DATE: 08/13/16 DICTATED BY: SYDNIE GUSMAN II DATE: 08/13/16 REPORT STATUS : Draft TRANSCRIBED BY: CHASITY DATE: 08/13/16 CARDIOVASCULAR: Regular rate and rhythm. No murmurs, rubs, or gallops. ABDOMEN: Soft, nontender, nondistended. Normoactive bowel sounds. EXTREMITIES: No cyanosis, clubbing, or edema. Bilateral lower extremities with no sensory or motor deficits. Good cap refill. Tenderness to palpation in the right femoral head. LABORATORY DATA: Sodium 145, potassium 3.7, chloride 110, CO2 26, BUN 18, creatinine 0.91. Albumin 1.9, T-bili 0.5, alkaline phosphatase 113, ALT 39, AST 42. WBC 5.1, hemoglobin 10.6, and platelets 160. INR 1.3. ASSESSMENT AND PLAN: The patient is a 70-year-old female with: 1. Right intertrochanteric hip fracture. We will admit the patient to the [address] [place] [address] Damon will operate tomorrow. Otherwise, pain control. 2. Breast cancer, status post chemo, which she finished already and currently pending radiation. Deferred to Oncology. 3. Diabetes mellitus type 2. We will have the patient on a sliding scale insulin while inpatient. 4. Hypertension. Home medications. 5. Morbid obesity. 6. Chronic methicillin-resistant Staphylococcus epidermidis, on doxycycline, which she will continue. 7. The patient is full code. YOLIS/CHASITY Sydnie Gusman II, MD / [id number] CC: Sydnie Gusman II, MD
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
--- NOTE | ~2016-08-13 | DS ---
Discharge Summary [facility] [address] [place]. [address] NAME: AYAN HERRERA : 43 STATUS : ADM IN [facility]#: [id number] AGE: 70 ADM/REG DATE : 08/13/16 MR#: [id number] REPORT SERV DATE: 08/17/16 DICTATED BY: RIP ERICKSON DATE: 08/17/16 REPORT STATUS : Draft TRANSCRIBED BY: MODL DATE: 08/17/16 ADMISSION DATE: 08/13/2016 DISCHARGE DATE: 08/17/2016 DISCHARGE DIAGNOSES: 1. Right hip open reduction and internal fixation. 2. Hypertension. 3. Acute blood loss anemia. 4. Chronic anemia. 5. Acute kidney injury. 6. Breast cancer, currently plans for chemoradiation after rehab. 7. Hyperlipidemia. 8. Chronic suppressive therapy for staph infection. CONSULTANTS DURING THIS HOSPITALIZATION: Dr. Иван Damon of Orthopedic Surgery. INVASIVE PROCEDURES DONE DURING THIS HOSPITALIZATION: None. BRIEF HISTORY OF PRESENT ILLNESS: The patient is a 70-year-old female with a recent diagnosis of breast cancer, received chemotherapy by Dr. Inocente Lee, had a low fall at home, suffered a right hip fracture, so she was admitted. For detailed history and physical exam, please see note dictated by Dr. Alonso Rosa on 08/13/2016. BRIEF HOSPITAL COURSE: After being admitted to the hospital, this patient was offered reasonable pain control. Orthopedic surgery saw the patient in consultation, performed the ORIF on 08/14/2013. Postoperatively, this patient had some complications of acute kidney injury due to hypotension. Her antihypertensives were held. She was noticed to have acute on chronic blood-loss anemia. We gave her two units of PRBCs postoperatively that has significantly improved her blood pressure as well as improved her hematocrit and hemoglobin. Her creatinine has now normalized. This patient feels weak and still complained of some pain. Oral pain medications will be given. The patient has been approved for rehab. Currently, she remained stable from a medical standpoint to transfer to rehab. During rehab, we have decided that no chemotherapy will be used as well as no radiation therapy. This should be started once patient completes her rehab stay. DISCHARGE DISPOSITION: To rehab. DISCHARGE ACTIVITY: Per facility. DISCHARGE DIET: Low-sodium diet. DISCHARGE MEDICATIONS: Aspirin 81 mg once daily; vitamin B12 2500 mcg once daily; doxycycline 100 mg twice daily, this is chronic therapy; Colace 100 mg twice daily; Prilosec 40 mg once daily; simvastatin 40 mg once at bedtime; Norvasc 10 mg once daily for a blood pressure greater than 140/90; MiraLAX one packet daily with 8 ounces of water p.r.n. for constipation; Senokot two tablets daily p.r.n.; Hyzaar 100/12.5 one tablet daily, hold for a Discharge Summary [address] [place] [address] [address] NAME: AYAN HERRERA : 43 STATUS : ADM IN PAT#: [id number] AGE: 70 ADM/REG DATE : 08/13/16 MR#: [id number] REPORT SERV DATE: 08/17/16 DICTATED BY: RIP ERICKSON DATE: 08/17/16 REPORT STATUS : Draft TRANSCRIBED BY: CHASITY DATE: 08/17/16 blood pressure less than 120/60; multivitamins one chewable tablet daily; Percocet 10/325 one to two tablets every four hours p.r.n. for pain. DISCHARGE FOLLOWUP: With Dr. Иван Damon, with Hematology Oncology, and with Radiation Oncology. More than 30 minutes spent planning this patient's discharge, reconciling medications, discussing hospital care, and followup with the patient and documenting this discharge. DICTATED BY: Luis Villar/CHASITY Rip Erickson M.D. / [id number] CC: Luis Villar IV, M.D. W. Timothy Ballard, M.D.
[~2016-08-13 09:34] MED LIST changes: +ACET500CAP PO; +ASAB PO; +DORYX100 MG PO; +GLUCPH PO; +MELA3 PO; +ZOCOR80 MG PO
[2016-08-13 10:12] LABS: BASOPHILS 0.6 %; BASOPHILS ABSOLUTE 0.03 10/3/uL (0.0-0.16); EOSINOPHILS 1.2 %; EOSINOPHILS ABSOLUTE 0.06 10/3/uL (0.0-0.53); IMMATURE GRANULOCYTES 0.4 %; IMMATURE GRANULOCYTES ABSOLUTE 0.02 10/3/uL (0.0-0.11); LYMPHOCYTES ABSOLUTE 1.77 10/3/uL (0.67-4.30); MEAN CORPUS HGB CONC 31.5 g/dL (32.0-36.0); MEAN CORPUSCULAR HEMOGLOB 30.9 pg (26.0-34.0); MEAN PLATELET VOLUME 10.1 fL (9.2-13.0); MONOCYTES 8.5 %; MONOCYTES ABSOLUTE 0.43 10/3/uL (0.21-1.20); NEUTROPHILS 54.3 %; NEUTROPHILS ABSOLUTE 2.74 10/3/uL (2.02-8.40); RBC DISTRIBUTION WIDTH 15.5 % (12.0-16.0); RED CELL COUNT 3.43 10/6/uL (4.0-5.6)
[2016-08-13 10:14] LABS: ER CBC TAT 0 Hrs 09 Mins; HEMATOCRIT 33.7 % (36.0-48.0); HEMOGLOBIN 10.6 g/dL (12.0-16.0); MANUAL DIFF NO %; MEAN CORPUSCULAR VOLUME 98.3 fL (80-100); PLATELET COUNT 160 10/3/uL (150-400); WHITE BLOOD CELLS 5.1 10/3/uL (4.5-10.5)
[2016-08-13 10:16] LABS: INTERNATIONAL NORMAL RATI 1.3 UNITS (-)
[2016-08-13 10:17] LABS: PROTIME (NOT ORD) 15.9 SEC (12.0-14.5)
[2016-08-13 10:26] LABS: A/G RATIO 0.7 (0.7-1.9); ALBUMIN 1.9 G/DL (3.5-5.0); ALKALINE PHOSPHATASE 113 U/L (45-117); BUN (BLOOD UREA NITROGEN) 18 MG/DL (6-23); CALCIUM, SERUM 8.1 MG/DL (8.5-10.4); CHLORIDE, SERUM 110 MMOL/L (96-112); CO2 (CARBON DIOXIDE) 26 MMOL/L (24-34); CREATININE 0.91 MG/DL (0.55-1.02); GFR AFRICAN AMERICAN 74 ML/MIN (>=60); GFR NON AFRICAN AMERICAN 63 ML/MIN (>=60); GLOBULIN 2.8 G/DL (2.5-4.1); GLUCOSE, SERUM 96 MG/DL (60-99); POTASSIUM, SERUM 3.7 MMOL/L (3.5-5.3); SGOT(AST) 42 U/L (5-40); SGPT(ALT) 39 U/L (5-65); SODIUM, SERUM 145 MMOL/L (135-148); TOTAL BILIRUBIN 0.5 MG/DL (0-1.2); TOTAL PROTEIN 4.7 G/DL (6.0-8.5)
[2016-08-13] MEDS ORDERED: ZOCOR40 PO (10:35)
[2016-08-13] MEDS ORDERED: NORV10 PO (10:35)
[2016-08-13] MEDS ORDERED: PRILOSEC40 MG PO (10:36)
[2016-08-13] MEDS ORDERED: HYZAAR1 TAB PO (10:36)
[2016-08-13] MEDS ORDERED: VIBRATAB100 MG PO (10:36)
[2016-08-13] MEDS ORDERED: MULTIVITAMIN CHEW PO (10:37)
[2016-08-13] MEDS ORDERED: VITAMIN B-122500 MCG SL (10:37)
[2016-08-13] MEDS ORDERED: HALF81 PO (10:37)
[2016-08-14 05:32] LABS: BASOPHILS 0.3 %; BASOPHILS ABSOLUTE 0.02 10/3/uL (0.0-0.16); EOSINOPHILS 0.5 %; EOSINOPHILS ABSOLUTE 0.03 10/3/uL (0.0-0.53); HEMOGLOBIN 8.9 g/dL (12.0-16.0); IMMATURE GRANULOCYTES 0.2 %; IMMATURE GRANULOCYTES ABSOLUTE 0.01 10/3/uL (0.0-0.11); LYMPHOCYTES ABSOLUTE 1.97 10/3/uL (0.67-4.30); MEAN CORPUS HGB CONC 31.6 g/dL (32.0-36.0); MEAN CORPUSCULAR HEMOGLOB 30.9 pg (26.0-34.0); MEAN CORPUSCULAR VOLUME 97.9 fL (80-100); MEAN PLATELET VOLUME 9.8 fL (9.2-13.0); MONOCYTES 9.1 %; NEUTROPHILS 59.9 %; NEUTROPHILS ABSOLUTE 3.94 10/3/uL (2.02-8.40); PLATELET COUNT 134 10/3/uL (150-400); RBC DISTRIBUTION WIDTH 15.3 % (12.0-16.0); RED CELL COUNT 2.88 10/6/uL (4.0-5.6); WHITE BLOOD CELLS 6.6 10/3/uL (4.5-10.5)
[2016-08-14 05:34] LABS: HEMATOCRIT 28.2 % (36.0-48.0); MANUAL DIFF NO %
[2016-08-14 05:45] LABS: CALCIUM, SERUM 7.7 MG/DL (8.5-10.4); CHLORIDE, SERUM 109 MMOL/L (96-112); CO2 (CARBON DIOXIDE) 26 MMOL/L (24-34); CREATININE 1.08 MG/DL (0.55-1.02); GFR AFRICAN AMERICAN 60 ML/MIN (>=60); GFR NON AFRICAN AMERICAN 52 ML/MIN (>=60); GLUCOSE, SERUM 88 MG/DL (60-99); SODIUM, SERUM 143 MMOL/L (135-148)
[2016-08-14 05:46] LABS: BUN (BLOOD UREA NITROGEN) 22 MG/DL (6-23); POTASSIUM, SERUM 4.7 MMOL/L (3.5-5.3)
[2016-08-15 06:23] LABS: BASOPHILS 0.2 %; BASOPHILS ABSOLUTE 0.01 10/3/uL (0.0-0.16); EOSINOPHILS 0.2 %; EOSINOPHILS ABSOLUTE 0.01 10/3/uL (0.0-0.53); HEMOGLOBIN 7.4 g/dL (12.0-16.0); LYMPHOCYTES 16.1 %; LYMPHOCYTES ABSOLUTE 1.04 10/3/uL (0.67-4.30); MEAN CORPUS HGB CONC 31.6 g/dL (32.0-36.0); MEAN CORPUSCULAR HEMOGLOB 30.7 pg (26.0-34.0); MEAN CORPUSCULAR VOLUME 97.1 fL (80-100); MEAN PLATELET VOLUME 9.2 fL (9.2-13.0); MONOCYTES 8.5 %; MONOCYTES ABSOLUTE 0.55 10/3/uL (0.21-1.20); NEUTROPHILS ABSOLUTE 4.83 10/3/uL (2.02-8.40); PLATELET COUNT 106 10/3/uL (150-400); RED CELL COUNT 2.41 10/6/uL (4.0-5.6); WHITE BLOOD CELLS 6.4 10/3/uL (4.5-10.5)
[2016-08-15 06:29] LABS: HEMATOCRIT 23.4 % (36.0-48.0); MANUAL DIFF NO %
[2016-08-15 06:30] LABS: INTERNATIONAL NORMAL RATI 1.4 UNITS (-); PROTIME (NOT ORD) 16.7 SEC (12.0-14.5)
[2016-08-15 06:39] LABS: BUN (BLOOD UREA NITROGEN) 24 MG/DL (6-23); CALCIUM, SERUM 7.6 MG/DL (8.5-10.4); CHLORIDE, SERUM 108 MMOL/L (96-112); CO2 (CARBON DIOXIDE) 25 MMOL/L (24-34); GFR AFRICAN AMERICAN 48 ML/MIN (>=60); GFR NON AFRICAN AMERICAN 41 ML/MIN (>=60); GLUCOSE, SERUM 95 MG/DL (60-99); POTASSIUM, SERUM 4.4 MMOL/L (3.5-5.3); SODIUM, SERUM 140 MMOL/L (135-148)
[2016-08-16 04:23] LABS: BASOPHILS 0.2 %; BASOPHILS ABSOLUTE 0.01 10/3/uL (0.0-0.16); EOSINOPHILS 0.3 %; EOSINOPHILS ABSOLUTE 0.02 10/3/uL (0.0-0.53); HEMOGLOBIN 8.2 g/dL (12.0-16.0); IMMATURE GRANULOCYTES 0.3 %; IMMATURE GRANULOCYTES ABSOLUTE 0.02 10/3/uL (0.0-0.11); LYMPHOCYTES 19.8 %; LYMPHOCYTES ABSOLUTE 1.31 10/3/uL (0.67-4.30); MANUAL DIFF NO %; MEAN CORPUS HGB CONC 32.8 g/dL (32.0-36.0); MEAN CORPUSCULAR HEMOGLOB 30.9 pg (26.0-34.0); MEAN CORPUSCULAR VOLUME 94.3 fL (80-100); MEAN PLATELET VOLUME 9.5 fL (9.2-13.0); MONOCYTES 9.4 %; MONOCYTES ABSOLUTE 0.62 10/3/uL (0.21-1.20); NEUTROPHILS ABSOLUTE 4.62 10/3/uL (2.02-8.40); PLATELET COUNT 99 10/3/uL (150-400); RED CELL COUNT 2.65 10/6/uL (4.0-5.6); WHITE BLOOD CELLS 6.6 10/3/uL (4.5-10.5)
[2016-08-16 04:29] LABS: INTERNATIONAL NORMAL RATI 1.7 UNITS (-); PROTIME (NOT ORD) 19.9 SEC (12.0-14.5)
[2016-08-16 04:36] LABS: BUN (BLOOD UREA NITROGEN) 28 MG/DL (6-23); CALCIUM, SERUM 7.4 MG/DL (8.5-10.4); CHLORIDE, SERUM 111 MMOL/L (96-112); CO2 (CARBON DIOXIDE) 26 MMOL/L (24-34); CREATININE 1.21 MG/DL (0.55-1.02); GFR AFRICAN AMERICAN 52 ML/MIN (>=60); GFR NON AFRICAN AMERICAN 45 ML/MIN (>=60); GLUCOSE, SERUM 95 MG/DL (60-99); POTASSIUM, SERUM 4.6 MMOL/L (3.5-5.3); SODIUM, SERUM 142 MMOL/L (135-148)
[2016-08-17 04:23] LABS: BASOPHILS 0.3 %; BASOPHILS ABSOLUTE 0.02 10/3/uL (0.0-0.16); EOSINOPHILS 4.7 %; EOSINOPHILS ABSOLUTE 0.28 10/3/uL (0.0-0.53); HEMOGLOBIN 9.1 g/dL (12.0-16.0); IMMATURE GRANULOCYTES 0.2 %; IMMATURE GRANULOCYTES ABSOLUTE 0.01 10/3/uL (0.0-0.11); LYMPHOCYTES 23.7 %; LYMPHOCYTES ABSOLUTE 1.41 10/3/uL (0.67-4.30); MEAN CORPUS HGB CONC 32.5 g/dL (32.0-36.0); MEAN CORPUSCULAR HEMOGLOB 31.1 pg (26.0-34.0); MEAN CORPUSCULAR VOLUME 95.6 fL (80-100); MEAN PLATELET VOLUME 9.2 fL (9.2-13.0); MONOCYTES 11.2 %; MONOCYTES ABSOLUTE 0.67 10/3/uL (0.21-1.20); NEUTROPHILS 59.9 %; NEUTROPHILS ABSOLUTE 3.57 10/3/uL (2.02-8.40); PLATELET COUNT 111 10/3/uL (150-400); RBC DISTRIBUTION WIDTH 16.6 % (12.0-16.0); RED CELL COUNT 2.93 10/6/uL (4.0-5.6)
[2016-08-17 04:24] LABS: MANUAL DIFF NO %
[2016-08-17 04:31] LABS: INTERNATIONAL NORMAL RATI 2.6 UNITS (-)
[2016-08-17 04:33] LABS: PROTIME (NOT ORD) 27.2 SEC (12.0-14.5)
[2016-08-17 04:38] LABS: BUN (BLOOD UREA NITROGEN) 30 MG/DL (6-23); CALCIUM, SERUM 7.8 MG/DL (8.5-10.4); CHLORIDE, SERUM 109 MMOL/L (96-112); CO2 (CARBON DIOXIDE) 27 MMOL/L (24-34); GFR AFRICAN AMERICAN 58 ML/MIN (>=60); GFR NON AFRICAN AMERICAN 50 ML/MIN (>=60); POTASSIUM, SERUM 4.7 MMOL/L (3.5-5.3); SODIUM, SERUM 140 MMOL/L (135-148)
[2016-08-17 04:40] LABS: GLUCOSE, SERUM 66 MG/DL (60-99)
[2016-08-18 04:53] LABS: INTERNATIONAL NORMAL RATI 2.8 UNITS (-); PROTIME (NOT ORD) 29.4 SEC (12.0-14.5)
== END 2016-08-18 16:15 | DRG 481 ==
LOC: ER 09:34 → 3SO 11:07
PROVIDERS: Emergency Medicine; Internal Medicine; Specialist
PROC: 0QS804Z Reposition Right Femoral Shaft with Internal Fixation Device, Open Approach (ICD-10-PCS; principal; 2016-08-14 08:00)
PROC: 30233N1 Transfusion of Nonautologous Red Blood Cells into Peripheral Vein, Percutaneous Approach (ICD-10-PCS; 2016-08-15)
DX: S72.001A Fracture of unspecified part of neck of right femur, initial encounter for closed fracture (principal); D62 Acute posthemorrhagic anemia; N17.9 Acute kidney failure, unspecified; E11.9 Type 2 diabetes mellitus without complications; C50.912 Malignant neoplasm of unspecified site of left female breast; E66.01 Morbid (severe) obesity due to excess calories; I10 Essential (primary) hypertension; E78.5 Hyperlipidemia, unspecified; K21.9 Gastro-esophageal reflux disease without esophagitis
CPT/HCPCS: 36415; 71010; 73502-RT; 76000; 80048; 80053; 82962; 85025; 85610; 86850; 86900; 86901; 86920; 93005; 96374; 97110-GP; 97161-GP; 97165-GO; 97530-GP; 99285; A9270-GY; C1713; J0330; J0690; J1170; J1885; J2250; J2274; J2370; J2405; J2550; J2710; J2795; J3010; P9016